=== PATIENT | female | born 1940 | race Caucasian/White ===

== ENCOUNTER 2017-12-26 02:21 | Emergency (ER) ==
[2017-12-26 02:21] VITALS: BMI 22.6
--- NOTE | 2017-12-26 03:58 | CT ---
EXAM: CT head without intravenous contrast 12/26/2017. Sagittal and coronal reformatted images obta ined HISTORY: Fall COMPARISON: 03/19/2015 FINDINGS: Isodense left sided subdural hemorrhage is present along the frontal and parietal lobes. This measures up to 3 mm thickness. This is age indeterminate however new as compared to the 2015 ex amination. This is likely subacute or chronic. The midline is maintained. There is diffuse generalized atrophy and chronic small vessel ischemic ch anges. The calvarium appears intact without fracture. The mastoid air cells are normally pneumatized. IMPRESSION: Isodense left frontal parietal subdural hemorrhage measuring up to 3 mm thickness. This is likely subacute or chronic.
--- NOTE | 2017-12-26 03:59 | CT ---
EXAM: CT cervical spine without intravenous contrast 12/26/2017. Sagittal and coronal reformatted i mages obtained HISTORY: Fall COMPARISON: None. FINDINGS: Straightening of the normal cervical lordosis. There is approximately 3 mm anterolisthesi s of C4 on C5. 2 mm anterolisthesis of C6 on C7. Multilevel chronic degenerative disc disease. Chronic facet arthropathy. There is no evidence of acute fracture. The prevertebral soft tissues appear within normal limits. IMPRESSION: Chronic findings as above. No acute post traumatic osseous abnormality of the cervical spine.
--- NOTE | 2017-12-26 04:04 | CT ---
EXAM: CT thoracic spine without intravenous contrast 12/26/2017. Sagittal and coronal reformatted im ages obtained HISTORY: Fall COMPARISON: None. FINDINGS: Normal anatomic alignment is maintained within the thoracic spine. Multilevel chronic deg enerative disc disease. Chronic degenerative endplate changes. Mild depression at the superior endplate of T8 appears chronic. The facet joints align normally. There is no evidence of acute fracture or subluxation at any level. IMPRESSION: No acute post traumatic osseous abnormality of the thoracic spine.
--- NOTE | 2017-12-26 04:07 | ED.PDOC ---
General ED Provider: Dr. HANSEL IRIZARRY-ER Chief Complaint: Back Pain Stated Complaint: my back hurts since i fell Time Seen by Physician: 02:30 Mode of Arrival: Wheelchair Information Source: Patient, Family Exam Limitations: No limitations Primary Care Provider: DINH RUSH Nursing and Triage Documentation Reviewed and Agree: Yes Does patient meet sepsis criteria?: No System Inflammatory Response Syndrome: Not Applicable Sepsis Protocol: For patient's 13 years and over: Temp is 96.8 and below OR 101 and greater Pulse >90 BPM Resp >20/minute Acutely Altered Mental Status Are patient's symptoms suggestive of a new infection, such as: -Pneumonia -Skin, Soft Tissue -Endocarditis -UTI -Bone, Joint Infection -Implantable Device -Acute Abdominal Infection -Wound Infection -Meningitis -Blood Stream Catheter Infection -Unknown Neurological Complaint Exam - Altered Mental Status Complaint/Exam Current Mental Status: Confusion Onset: Gradual Symptoms Are: Still present Initial Severity: Mild Current Severity: Mild Eye Deviation Present: No Character: Reports: Confusion Aggravating: Reports: Trauma Alleviating: Reports: None Associated Signs and Symptoms: Reports: Seizure Related History: Reports: Similar episode Cardiac Risk Factors: Reports: Hypertension CVA Risk Factors: Reports: Hypertension Carotid Bruit Present: No Nystagmus Present: No Gag Reflex Present: Yes Focal Weakness: Present: None Focal Sensory Loss: Present: None Gait: Normal Thrombolytics Considered: No Differential Diagnoses: Injury, Other Review of Systems - Review Of Systems Constitutional: Reports: No symptoms Eyes: Reports: No symptoms Ears, Nose, Mouth, Throat: Reports: No symptoms Respiratory: Reports: No symptoms Cardiac: Reports: No symptoms GI: Reports: No symptoms : Reports: No symptoms Musculoskeletal: Reports: Back pain Skin: Reports: No symptoms Neurological: Reports: Cognitive dysfunction Endocrine: Reports: No symptoms Hematologic/Lymphatic: Reports: No symptoms All Other Systems: Reviewed and Negative Past Medical History - Past Medical History Previously Healthy: No Endocrine: Reports: None Cardiovascular: Reports: CAD, Hypertension Respiratory: Reports: None Hematological: Reports: None Gastrointestinal: Reports: GERD Genitourinary: Reports: None Neuro/Psych: Reports: None Musculoskeletal: Reports: Arthritis, Back Pain Cancer: Reports: None Last Menstrual Period: UNKNOWN - Surgical History General Surgical History: Reports: Unknown - Family History Family History: Reports: Unknown - Social History Smoking Status: Former smoker Hx Substance Use: No Alcohol Screening: Occasionally - Immunizations Tetanus Shot up to Date: Yes Physical Exam - Physical Exam Appearance: Well-appearing, No pain distress, Well-nourished Pain Distress: Mild Eyes: MAREN, EOMI, Conjunctiva clear ENT: Ears normal Neck: Supple Respiratory: Airway patent, Breath sounds clear, Breath sounds equal, Respirations nonlabored Cardiovascular: RRR, Pulses normal, No rub, No murmur GI/: Soft Musculoskeletal: Limited ROM Skin: Warm, Dry, Normal color Neurological: Sensation intact, Disoriented Psychiatric: Affect appropriate, Mood appropriate Interpretation - Radiology Interpretation Radiology Interpretation By: Radiologist Radiology Results: Positive Exam Interpreted: CT Scan Critical Care Note - Critical Care Note Total Time (mins): 0 Course - Course Orders, Labs, Meds: Orders Category Date Time Status CT CERVICAL SPINE W/O CONTRAST Stat RADS 12/26/17 03:[address] HEAD W/O CONTRAST Stat RADS 12/26/17 03:[address] LUMBAR SPINE W/O CONTRAST Stat RADS 12/26/17 03:[address] THORACIC SPINE W/O CONTRAST Stat RADS 12/26/17 03:11 Taken Vital Signs: Temp Pulse Resp BP Pulse Ox 12/26/17 02:22 99 F 93 H 18 130/72 97 Departure - Departure Time of Disposition: 04:14 Disposition: TSF [facility]ORT-TRM [facility]OSP Discharge Problem: Subdural hematoma Sacral fracture Qualifiers: Encounter type: initial encounter Zone of sacrum fracture: unspecified portion of sacrum Fracture type: closed Qualified Code(s): S32.10XA - Unspecified fracture of sacrum, initial encounter for closed fracture Instructions: Subdural Hematoma (ED) Condition: Good Pt referred to PMD for follow-up: Yes IPMP verified?: No Allergies/Adverse Reactions: Allergies No Known Allergies Allergy (Verified 12/26/17 02:45) Home Medications: Ambulatory Orders Amitriptyline HCl 50 mg PO BEDTIME 03/19/15 Amlodipine Besylate/Benazepril [Amlodipine-Benazepril 10-20 mg] 1 each PO DAILY 03/19/15 Aspirin [Aspirin Chewable] 81 mg PO DAILYWM 03/19/15 Cetirizine HCl [Zyrtec] 10 mg PO DAILY 03/19/15 Clopidogrel Bisulfate [Plavix] 75 mg PO DAILY 03/19/15 Diclofenac Sodium 75 mg PO BID 03/19/15 Folic Acid 1 mg PO DIRECTED 03/19/15 Memantine HCl [Namenda] 10 mg PO BID 03/19/15 Methotrexate Sodium [Methotrexate] 2.5 mg PO DIRECTED 03/19/15 Metoprolol Succinate [Toprol Xl] 50 mg PO DAILY 03/19/15 Omeprazole [Prilosec] 20 mg PO QDAC 03/19/15 Potassium Chloride [Micro-K Cap] 10 meq PO DAILY 03/19/15 Prednisone 4 mg PO DAILYWM 03/19/15 Rosuvastatin Calcium [Crestor] 10 mg PO BEDTIME 03/19/15 Cholecalciferol (Vitamin D3) [Vitamin D] 1,000 unit PO WEEKLY 12/26/17 Gabapentin 300 mg PO TID 12/26/17 Oxycodone-Acetaminophen 5-325 [Percocet 5-325] 1 tab PO TID PRN 12/26/17 Sertraline HCl 25 mg PO DAILY 12/26/17 Tramadol HCl [Ultram] 100 mg PO Q6H PRN 12/26/17 Trazodone HCl 50 mg PO BEDTIME 12/26/17 Transfer Form Completed: Yes Disposition Discussed With: Patient, Family
--- NOTE | 2017-12-26 04:10 | CT ---
EXAM: CT lumbar spine without intravenous contrast 12/26/2017. Sagittal and coronal reformatted preeti ges obtained HISTORY: Fall COMPARISON: None. FINDINGS: There is scoliotic curvature with convexity to the right. This is centered at the L2 leve l. Posterior fusion is present at L2 through L5. Multilevel chronic degenerative disc disease. This is most severe at L1-L2 and L5-S1. Chronic facet arthropathy. There is no evidence of acute fracture within the lumbar spine. There are bilateral jagged lucencies within the sacrum consistent with fracture.. These are age inde terminate. Acute fracture is not excluded. This could represent acute on chronic process. There ar e multiple sharply marginated fracture fragments and fracture lines. This process extends through th e visualized portion of the sacrum including S1, S2 and S3. The osseous structures appear deminerali zed. IMPRESSION: 1. Chronic and postoperative changes of the lumbar spine. No lumbar fracture identified. 2. Comminuted bilateral sacral fractures. No prior imaging of the sacrum available for comparison. These findings are age indeterminate. Multiple fracture lines and fracture fragments appear sharply marginated. This could represent acute on chronic process.
[2017-12-26 04:26] VITALS: BP 148/83; TEMP 98.7
[2017-12-26] MEDS ORDERED: MORPHINE 2 MG/ML SYRINGE IVP STA (04:42)
[2017-12-26] MEDS ORDERED: ZOFRAN 4 MG/2 ML IVP STA (04:43)
== END 2017-12-26 05:40 | disposition short-term general hospital (02) ==
LOC: ED 02:21
DX: S06.5X9A Traumatic subdural hemorrhage with loss of consciousness of unspecified duration, initial encounter (principal); S32.10XA Unspecified fracture of sacrum, initial encounter for closed fracture; M54.5 Low back pain; W19.XXXA Unspecified fall, initial encounter; F03.90 Unspecified dementia, unspecified severity, without behavioral disturbance, psychotic disturbance, mood disturbance, and anxiety; I10 Essential (primary) hypertension; I25.10 Atherosclerotic heart disease of native coronary artery without angina pectoris
CPT/HCPCS: 96374; 96375; 99285

== ENCOUNTER 2018-02-08 10:04 | Outpatient (CLI) | payer OTHER | END 2018-02-08 10:05 | disposition home or self-care (01) | LOC: NONPT 10:04 | PROVIDERS: ATTEND Family Medicine | DX: R30.0 Dysuria (principal) | CPT/HCPCS: 81001; 87086 ==

== ENCOUNTER 2018-03-30 13:49 | Outpatient (CLI) | payer OTHER ==
--- NOTE | 2018-03-31 08:26 | CT ---
EXAM: CT Pelvis without contrast. HISTORY: Previous fall and sacral fracture. Persistent left hip and pelvic pain. COMPARISON: Lumbar spine CT 12/26/2017. TECHNIQUE: Multiple axial images of the pelvis were obtained without intravenous contrast. Images w ere reformatted in the coronal and sagittal plane. FINDINGS: Please note that evaluation of the pelvic soft tissue structures is limited due to lack of intravenous contrast. Comminuted displaced sacral alar fractures noted bilaterally. There is diffuse sclerosis and suggest ion of some callus formation, although fracture lines remain readily evident extending essentially th e entire length of the sacrum. Additionally there are comminuted displaced fractures of the right and left inferior and superior pub ic rami with widening of the pubic symphysis. Significant displacement of right-sided pubic symphysi al fracture fragments which are located more inferolaterally in the medial right hip musculature on a xial image 70. Left sided superior pubic ramus fracture extends into the anterior acetabulum with so me intra-articular involvement on axial images 50-52. There is prominent soft tissue density with ce ntral low density at the level of the pubic symphysis measuring 5 x 3.8 cm on axial image 57. There i s no internal air. No lacy osseous destruction identified. There is no femoral fracture or hip dislocation. There has been previous posterior fusion and toya ctomy at L4-5 with severe degenerative disc disease at L5-S1 IMPRESSION: 1. Unexpected finding: Acute or subacute comminuted, displaced bilateral obturator ring fractures w ith intra-articular involvement in the anterior left acetabulum and widening of the pubic symphysis. Significant displacement of some right-sided pubic symphysial fracture fragments into the right hip musculature. Prominent soft tissue prominence at the level of the pubic symphysis most likely represe nts hematoma/edema. Correlate for signs of infection. 2. Comminuted displaced bilateral sacral alar fractures without significant healing.
== END 2018-03-30 13:50 | disposition home or self-care (01) ==
LOC: RAD 13:49
PROVIDERS: ATTEND Family Medicine
DX: M25.552 Pain in left hip (principal)